=== PATIENT | female | born 1970 | race Caucasian/White ===

== ENCOUNTER 2018-04-12 00:40 | Emergency (ER) | payer SELFPAY ==
[~2018-04-12] VITALS: Ht 165.1 cm; Wt 80.4 kg
[~2018-04-12 00:40] MED LIST: DIFL500T PO; Z.0.NO CURRENT MEDS
[2018-04-12 00:52] VITALS: BP 174/110; PULSE 86; RESP 18; TEMP 98.1; O2SAT 97
[2018-04-12 01:04] VITALS: BP 174/110; PULSE 86; RESP 18; TEMP 98.1; O2SAT 97
--- NOTE | 2018-04-12 01:21 | PD ---
HPI Chief Complaint: Facial Pain or Swelling Time Seen by Provider: 01:20 Travel History International Travel<30 days: No Contact w/Intl Traveler<30days: No Traveled to known affect area: No History of Present Illness HPI Patient is a 47 yo female presents to the ER for evaluation of swelling to the right side of her face started a few hours ago. Denies pain, denies visual difficulties, focalized weakness, headache, n/v/d. She states this has never happened to her before and progressed fairly rapidly when she was eating popcorn earlier. She is concerned that she might have an aneurysm in her face. Symptoms mild, right face, context, duration as above. PFSH Past Medical History Cerebrovascular Accident: Yes (Oct 2016) Patient Takes Glucophage: No Diminished Hearing: No Hypertension: Yes Musculoskeletal: Yes (CHRONIC BACK PAIN) Influenza Vaccination: No ?: Not LMP: 1 year Past Surgical History Other Surgery: Yes (BREAST AUGMENTATION) Social History Alcohol Use: Yes (Occasional) Tobacco Use: Yes (4cigars daily) Substance Use: Yes (Marijuana) Allergies-Medications (Allergen,Severity, Reaction): Coded Allergies: No Known Allergies (Verified Adverse Reaction, Unknown, 04/12/18) Reported Meds & Prescriptions Reported Meds & Active Scripts Active Dolobid (Diflunisal) 500 Mg Tab 500 Mg PO BIDPRN FOR PAIN Reported Hydrocodon-Acetamin 7.5-325/15 (Hydrocodone/Acetaminophen) 7.5 Mg-325 Mg/15 Ml ( 15 Ml) Solution 7.5 Mg PO DAILY Adipex-P (Phentermine HCl) 37.5 Mg Tab 37.5 Mg PO DAILY Hydrochlorothiazide 25 Mg Tab 25 Mg PO DAILY Metoprolol Tartrate 25 Mg Tab 25 Mg PO DAILY Norvasc (Amlodipine Besylate) 10 Mg Tab 10 Mg PO DAILY No Current Meds (Miscellaneous Medication) Misc Review of Systems Except as stated in HPI: all other systems reviewed are Neg Physical Exam Narrative GENERAL: WD/WN in nad. SKIN: Warm and dry. HEAD: Normocephalic. EYES: No scleral icterus. No injection or drainage. ENT: Minimal right sided facial swelling over the parotid gland. There is no visible stone in the duct. No tenderness. no pulsatile lesion. No carotid bruits. NECK: Supple, trachea midline. No JVD or lymphadenopathy. CARDIOVASCULAR: Regular rate and rhythm without murmurs, gallops, or rubs. RESPIRATORY: Breath sounds equal bilaterally. No accessory muscle use. GASTROINTESTINAL: Abdomen soft, non-tender, nondistended. MUSCULOSKELETAL: No cyanosis, or edema. BACK: Nontender without obvious deformity. No CVA tenderness. Data Data Last Documented VS Orders Orders Ed Discharge Order (04/12/18 01:22) MDM Medical Decision Making Medical Screen Exam Complete: Yes Emergency Medical Condition: Yes Differential Diagnosis Parotiditis, Sialoadenitis, vascular lesion highly unlikely. Narrative Course Patient roomed in the ER. Appears well. Discussed diagnosis and symptomatic management and follow up with PCP. SHe is reassured. no indication for further workup of this patient at this time. Diagnosis Primary Impression: Sialoadenitis Disposition: 01 DISCHARGE HOME Condition: Stable Isael Magana MD Apr 12, 2018 01:21
[2018-04-12] MEDS ORDERED: METO25TA3 PO (01:27)
[2018-04-12] MEDS ORDERED: HYDR25TA5 PO (01:27)
[2018-04-12] MEDS ORDERED: HYDR1SOL6 PO (01:27)
[2018-04-12] MEDS ORDERED: ADIP37.55 PO (01:27)
[2018-04-12] MEDS ORDERED: AMLO10 PO (01:27)
[2018-04-12 01:29] VITALS: BP 149/98
== END 2018-04-12 01:40 | disposition home or self-care (01) ==
LOC: PHED 00:40
DX: K11.20 Sialoadenitis, unspecified (principal); R53.1 Weakness; R51 Headache; I10 Essential (primary) hypertension; Z72.0 Tobacco use
CPT/HCPCS: 99281